=== PATIENT | female | born 1960 | race Caucasian/White ===

== ENCOUNTER 2017-11-21 11:02 | Day surgery (SDC) | payer BC ==
[2017-11-19 14:38] VITALS: BMI 27.0
[~2017-11-21 11:02] MED LIST: LACTATED RINGERS 1,000 ML IV SCH; LIDOCAINE 1% 20 ML VIAL (10MG/ML) FOR IV START INTRADERMA PRN
[2017-11-21 11:51] VITALS: TEMP 98.3
[2017-11-21] MEDS ORDERED: ONDANSETRON 4 MG/2 ML VIAL IVP ONE (12:03)
[2017-11-21] MEDS ORDERED: PROPOFOL 10 MG/ML 20 ML VIAL IV ONE (12:18)
--- NOTE | 2017-11-21 12:27 | P.GSHP ---
History of Present Illness H&P Date: 11/21/17 Chief Complaint: Screening colonoscopy This a 57-year-old female who presents today for screening colonoscopy. She's never had a colonoscopy before. She denies any significant GI complaints. Past Medical History Past Medical History: Hyperlipidemia, Thyroid Disorder Additional Past Medical History / Comment(s): recent elevated BP- no Rx, tinnitus History of Any Multi-Drug Resistant Organisms: None Reported Past Surgical History: Hysterectomy, Tonsillectomy Additional Past Surgical History / Comment(s): laproscopy, D&C, oleg cataracts, lasik surgery Past Anesthesia/Blood Transfusion Reactions: Postoperative Nausea & Vomiting ( PONV) Smoking Status: Never smoker - Past Family History Mother Family Medical History: No Reported History Medications and Allergies Home Medications Medication Instructions Recorded Confirmed Type Aspirin [Adult Low Dose Aspirin EC] 81 mg PO DAILY 11/19/17 11/21/17 History Atorvastatin [Lipitor] 20 mg PO DAILY 11/19/17 11/21/17 History Cholecalciferol [Vitamin D3] 2,000 unit PO DAILY 11/19/17 11/21/17 History Fish Oil/Dha/Epa [Fish Oil 1,200 1 each PO DAILY 11/19/17 11/21/17 History mg Fish Oil] Levothyroxine Sodium [Synthroid] 75 mcg PO DAILY 11/19/17 11/21/17 History Multivitamins, Thera [Multivitamin 1 tab PO DAILY 11/19/17 11/21/17 History (formulary)] Allergies Allergy/AdvReac Type Severity Reaction Status Date / Time No Known Allergies Allergy Verified 11/21/17 11:38 Surgical - Exam Vital Signs Temp Pulse Resp BP Pulse Ox 98.3 F 79 16 151/86 99 11/21/17 11:48 11/21/17 11:48 11/21/17 11:48 11/21/17 11:48 11/21/17 11:48 - General well developed, well nourished, no distress - Eyes PERRL - ENT normal pinna - Neck no masses - Respiratory normal expansion - Cardiovascular Rhythm: regular - Abdomen Abdomen: soft, non tender Assessment and Plan Assessment: We'll perform screening colonoscopy.
--- NOTE | 2017-11-21 12:46 | P.OP ---
Date of Procedure: 11/21/17 Preoperative Diagnosis: Screening colonoscopy Postoperative Diagnosis: Mild diverticulosis Procedure(s) Performed: Colonoscopy Anesthesia: MAC Surgeon: Manoj Reyes Pathology: none sent Condition: stable Disposition: PACU Description of Procedure: The patient's placed on the endoscopy table in the lateral position. She received IV sedation. Digital rectal exam is performed which revealed no ebonized. The flexible colonoscope was then placed patient anus and passed throughout the entire colon. The ileocecal valve was visualized. The cecum, ascending and transverse colon appeared normal. In the descending and sigmoid colon there is mild diverticular changes. Scope was then brought back the rectum and this appeared normal. Scope was withdrawn for patient.
[2017-11-21 12:52] VITALS: RESP 18
[2017-11-21 13:23] VITALS: BP 165/94; PULSE 56
== END 2017-11-21 13:59 | disposition home or self-care (01) ==
LOC: ORWHC2ENDO 11:02
PROVIDERS: ATTEND Surgery
DX: Z12.11 Encounter for screening for malignant neoplasm of colon (principal); K57.30 Diverticulosis of large intestine without perforation or abscess without bleeding; E78.5 Hyperlipidemia, unspecified; E07.9 Disorder of thyroid, unspecified; Z79.82 Long term (current) use of aspirin; Z79.890 Hormone replacement therapy; Z79.899 Other long term (current) drug therapy
CPT/HCPCS: J2405; J2704; G0121

== ENCOUNTER → 2023-09-28 | Outpatient (CLI) | payer OTHER ==
--- NOTE | 2023-09-28 10:37 | CA ---
Exercise Stress Test Report Name: Virginia Funes Exam Date: 09/28/2023 09:41 Exam Location: [place] Stress Ht (in): 65 Wt (lb): 160 BSA: 1.80 Ordering Phys: Christine Griffith DO Referring Phys: Alesia Cramer PAC Technologist: Kin Harris Age: 63 Gender: F : 1960 Procedure CPT: Indications: R00.2 palpitations ICD-10 Codes: Patient History: BILLY, PALP, HTN, DM, CHOL, FAMILY HX, Medications: LISINOPRIL, METFORMIN, ATORVASTATION, LEVOTHYROXINE, VIT D3, COQ10, MULTI VIT Meds past 24 hrs: Pretest Chest Pain: STRESS TEST Soahm Protocol Exercise Duration (min:sec): 07:[address] Depressions (mm): Angina Score: Schwab Score: Resting HR (bpm): 80 Peak HR (bpm): 158 Resting BP (mmHg): 132 / 95 Peak BP (mmHg): 188 / 85 MPHR: 157 Target HR: 133 % MPHR: 101 METS: 10.3 Total Dose: Peak Dose: Atropine: Double Product: 47590 BP Response: Stress Termination: TARGET HR REACHED/MAX EXERTION Stress Symptoms: NO SYMPTOMS Stress Summary: ECG ANALYSIS Resting ECG: Normal sinus rhythm normal axis normal intervals Stress ECG: Patient exercised on Soham protocol for 7 minutes achieving 85% of predicted maximal heart rate without chest pain or diagnostic ST segment depression CONCLUSIONS Average exercise tolerance Negative stress test by EKG criteria Dr. Tahir Macdonald MD (Electronically Signed) Final Date: 28 September 2023 10:37
--- NOTE | 2023-09-28 12:50 | NM ---
EXAMINATION TYPE: NM stress cardiolite complete DATE OF EXAM: 09/28/2023 COMPARISON: NONE CLINICAL INDICATION: Female, 63 years old with history of R00.2 PALPITATIONS; TECHNIQUE: After the intravenous administration of 10.32 mCi Tc 99m Sestamibi - Rest images obtained 50 minutes post injection. The patient exercised using a MARLON protocol and 1 minute prior to peak exercise was injected with 25.6 mCi Tc 99m Sestamibi - Stress images obtained 40 minutes post inject ion. FINDINGS: Targeted heart rate (133 BPM) was achieved during performance of the study (158 bpm achieved with tot al exercise time 7 minutes). Review of stress and rest SPECT images demonstrates large area of fixed perfusion defect along the anterior wall. This defect is larger on rest images suggesting prominent a ttenuation artifact. Within this limitation, no discrete reversibility is identified. Gated analysis shows some limited augmentation of the anterior wall. Estimated left ventricular ejection fraction o f 88 %. TID is calculated at 0.45, within normal limits. IMPRESSION: Large fixed anterior wall defect may be on the basis of prominent body wall attenuation artifact. We favor artifact rather than prior infarct as the defect is larger on rest. Further clinical correlatio n recommended. Allowing for this limitation, no discrete reversibility is seen.
== END | disposition home or self-care (01) ==
LOC: RADNMMAIN 08:12
PROVIDERS: ATTEND Family Medicine
DX: R00.2 Palpitations (principal); R00.0 Tachycardia, unspecified
CPT/HCPCS: 93017; 78452; A9500